=== PATIENT | female | born 1955 | race Caucasian/White ===

== ENCOUNTER → 2023-07-01 11:47 | Outpatient (REF) | payer MEDICARE, OTHER, SELFPAY | LOC: RAD 11:47 | PROVIDERS: ATTENDING PHYSICIAN Physician Assistant Medical | DX: M54.2 Cervicalgia (principal); G89.29 Other chronic pain; M25.562 Pain in left knee; M25.511 Pain in right shoulder | CPT/HCPCS: 72050; 73030; 73564 ==

== ENCOUNTER → 2024-12-17 13:29 | Outpatient (REF) | payer MEDICARE, OTHER, SELFPAY | LOC: MRI 3T 13:29 | PROVIDERS: ATTENDING PHYSICIAN Physician Assistant Medical | DX: M25.561 Pain in right knee (principal); Z00.00 Encounter for general adult medical examination without abnormal findings | CPT/HCPCS: 73721 ==